=== PATIENT | female | born 1975 | race Caucasian/White ===

== ENCOUNTER → 2016-08-25 | Outpatient (CLI) | payer OTHER ==
[~2016-08-25] MED LIST: AMITRIPTYLINE H25 M2 PO; APAP/CODEINE ELI5 M1 OR; CLONAZEPAM 1 MG1 M1 PO; CLONAZEPAM PO; FLEXERIL PO; FLUOXETINE; IMITREX 25 MG T25 M1 PO; LAMICTAL XR250 MG PO; LAMICTAL100 MG PO; NORCO 5-325 TA1 EACH PO; PROZAC20 MG PO; TEMAZEPAM; ZPAK PO; [UNRECOGNIZED DRUG - OTHER] PO
== END ==
LOC: RAD 11:09
DX: Z12.31 Encounter for screening mammogram for malignant neoplasm of breast (principal)

== ENCOUNTER 2019-03-18 17:58 | Emergency (ER) | payer BC, OTHER ==
[~2019-03-18] VITALS: Ht 162.6 cm; Wt 113.4 kg
[2019-03-18] MEDS ORDERED: NORCO 5-325 TA1 EAC1 PO (20:31)
[2019-03-18 20:43] VITALS: BP 158/91
== END 2019-03-18 20:43 | disposition home or self-care (01) ==
LOC: ER 17:58
DX: S93.491A Sprain of other ligament of right ankle, initial encounter (principal); S80.11XA Contusion of right lower leg, initial encounter; J45.909 Unspecified asthma, uncomplicated; F31.9 Bipolar disorder, unspecified; Z88.1 Allergy status to other antibiotic agents; Z88.2 Allergy status to sulfonamides; W01.0XXA Fall on same level from slipping, tripping and stumbling without subsequent striking against object, initial encounter; Y93.89 Activity, other specified; Y92.89 Other specified places as the place of occurrence of the external cause; Y99.8 Other external cause status